=== PATIENT | male | born 1970 | race Caucasian/White ===

== ENCOUNTER 2018-08-18 08:43 | Emergency (ER) | payer MEDICAID ==
[2018-08-18] MEDS: KETOROLAC 30 MG INJ IM (09:39)
[2018-08-18] MEDS: morphine 2 MG INJ IM (09:43)
[2018-08-18] MEDS: LIDOCAINE 2% (MDV) 20 ML INJ INJ (10:27)
[2018-08-18] MEDS: DIPHTH/TET/ACEL PERTUSS (ADULT) 0.5 ML VIAL IM* (10:33)
[2018-08-18] MEDS: BUPIVACAINE 0.25% (MPF) 10 ML 10 ML VIAL INJ (10:43)
[2018-08-18] MEDS: BUPIVACAINE 0.25% (MPF) 30 ML INJ INJ (10:52)
[2018-08-18] MEDS: CEFAZOLIN 1 GM INJ IM (11:30)
== END 2018-08-18 12:01 | disposition home or self-care (01) ==
LOC: FTE 08:43
DX: S60.351A Superficial foreign body of right thumb, initial encounter (principal); W45.0XXA Nail entering through skin, initial encounter; Y92.89 Other specified places as the place of occurrence of the external cause; Z23 Encounter for immunization
CPT/HCPCS: 10120; 73130-LT; 90471; 90715; 96372; 99284-25

== ENCOUNTER 2018-08-20 08:22 | Emergency (ER) | payer MEDICAID | END 2018-08-20 09:42 | disposition home or self-care (01) | LOC: FTE 08:22 | DX: Z48.01 Encounter for change or removal of surgical wound dressing (principal) | CPT/HCPCS: 99281; Z7502 ==

== ENCOUNTER 2018-10-06 03:08 | Emergency (ER) | payer MEDICAID ==
[2018-10-06 03:30] LABS: ADD MAN DIFF? NO
[2018-10-06] MEDS: SOD CHLORIDE 0.9% 1,000 ML IV (03:30)
[2018-10-06] MEDS: HYDROmorphONE 1 MG/ML SYG IV (03:30)
[2018-10-06] MEDS: ONDANSETRON 4 MG INJ IV (03:30)
[2018-10-06 03:33] LABS: BASOPHIL # 0.1 10^3/ul (0.0-0.1); BASOPHILS % 0.9 % (0.0-2.0); EOSINOPHILS # 0.2 10^3/ul (0.0-0.5); EOSINOPHILS % 2.5 % (0.0-7.0); HEMATOCRIT 41.8 % (42.0-52.0); HEMOGLOBIN 14.2 g/dl (14.0-18.0); LYMPHOCYTES # 3.8 10^3/ul (0.8-2.9); LYMPHOCYTES % 39.4 % (15.0-51.0); MEAN CORPUSCULAR HEMOGLOBIN 28.5 pg (29.0-33.0); MEAN CORPUSCULAR VOLUME 83.9 fl (82.0-101.0); MEAN PLATELET VOLUME 9.4 fl (7.4-10.4); MONOCYTE # 0.7 10^3/ul (0.3-0.9); MONOCYTES % 7.3 % (0.0-11.0); NEUTROPHIL # 4.8 10^3/ul (1.6-7.5); NEUTROPHILS % 49.6 % (39.0-77.0); PLATELET COUNT 283 10^3/UL (140-415); RED BLOOD COUNT 4.98 10^6/ul (4.70-6.10); RED CELL DISTRIBUTION WIDTH 12.5 % (11.5-14.5)
[2018-10-06 03:33] LABS: WHITE BLOOD COUNT 9.6 10^3/ul (4.8-10.8)
[2018-10-06 04:58] LABS: ALANINE AMINOTRANSFERASE 37 IU/L (13-69); ALBUMIN 4.1 g/dl (3.3-4.9); ALBUMIN/GLOBULIN RATIO 1.28; ALKALINE PHOSPHATASE 105 IU/L (42-121); ANION GAP 12 (5-13); ASPARTATE AMINO TRANSFERASE 25 IU/L (15-46); BILIRUBIN,INDIRECT 0.3 mg/dl (0-1.1); BILIRUBIN,TOTAL 0.3 mg/dl (0.2-1.3); BLOOD UREA NITROGEN 8 mg/dl (7-20); CALCIUM 9.2 mg/dl (8.4-10.2); CARBON DIOXIDE 25 mmol/L (21-31); CHLORIDE 107 mmol/L (97-110); CREATININE 0.71 mg/dl (0.61-1.24); Estimated GFR > 60 mL/min (>60); GLUCOSE 134 mg/dl (70-220); LIPASE 142 U/L (23-300); SODIUM 144 mmol/L (135-144); TOTAL PROTEIN 7.3 g/dl (6.1-8.1)
[2018-10-06 05:41] LABS: ADD UMIC YES; UR ASCORBIC ACID NEGATIVE (NEGATIVE); UR BILIRUBIN (Dip) NEGATIVE (NEGATIVE); UR BLOOD (Dip) NEGATIVE (NEGATIVE); UR CLARITY CLEAR (CLEAR); UR COLOR STRAW (YELLOW); UR GLUCOSE (Dip) NEGATIVE (NEGATIVE); UR KETONES (Dip) NEGATIVE (NEGATIVE); UR LEUKOCYTE ESTERASE (Dip) TRACE Leu/ul (NEGATIVE); UR NITRITE (Dip) NEGATIVE (NEGATIVE); UR RBC 0 /HPF (0-5); UR SPECIFIC GRAVITY (Dip) 1.009 (1.003-1.030); UR TOTAL PROTEIN (Dip) NEGATIVE (NEGATIVE); UR UROBILINOGEN (Dip) NEGATIVE (NEGATIVE); UR WBC 3 /HPF (0-5)
== END 2018-10-06 06:03 | disposition home or self-care (01) ==
LOC: E/R 03:08
DX: K42.9 Umbilical hernia without obstruction or gangrene (principal); I10 Essential (primary) hypertension
CPT/HCPCS: 36415; 74176; 80053; 81001; 83690; 85025; 96361; 96374; 96375; 99285-25